=== PATIENT | male | born 1965 | race Caucasian/White ===

== ENCOUNTER 2017-02-17 16:29 | Emergency (ER) | payer MEDICAID ==
[2017-02-17] MEDS ORDERED: NS 1,000 ML IV ONE ×2 (16:59→17:08)
--- NOTE | 2017-02-17 17:01 | EDPHY ---
Addendum entered and electronically signed by Jamilah Morocho PAC 02/17/17 18:27: Decision was made to transfer to [facility] due to not having Dermatology here at this facility. 1825: Spoke with Dr. Alfonso Merchant at [facility] who kindly agrees to accept care of the patient. Patient will be admitted for further workup and management to the floor, inpatient status. Original Note: H & P Stated Complaint: red peeling skin for two weeks getting worse Source: Patient, Family Exam Limitations: No limitations - Personal History Current Tetanus/Diphtheria Vaccine: No Current Tetanus Diphtheria and Acellular Pertussis (TDAP): No - Medical/Surgical History Hx Asthma: No Hx Chronic Respiratory Disease: No Hx Diabetes: No Hx Cardiac Disease: No Hx Renal Disease: No Hx Cirrhosis: No Hx Alcoholism: No Hx HIV/AIDS: No Hx Splenectomy or Spleen Trauma: No Other PMH: psoriasis. right shoulder shoulder surgery - Social History Smoking Status: Never smoked Time Seen by Provider: 02/17/17 16:59 HPI/ROS: HPI: This is a 51-year-old male who presents with Chief Complaint: red peeling skin for two weeks getting worse Location: Skin Quality: Red and peeling Duration: 2 weeks Signs and Symptoms: No fever, + chills, no blood in stool, no nausea, no vomiting, no easy bruising, + petechiae, + rash Timing: Worsening Severity: Severe Context: Patient has a history of psoriasis, noted a reddened rash that started on his torso approximately 2 weeks ago that has spread to his entire body including the palms of his hands and soles of his feet accompanied by "red spots" in his mouth and easy bleeding from his gums when he brushes his teeth. + chills. For the last week he has been using Ceravue with no improvement in his symptoms. Patient denies pruritus. Complaining about flakiness of skin. Denies any new medication/lotion/detergents/perfumes. Denies meningismus/fever/ headache/blood in stool/hematemesis. He has tried Benadryl, Claritin without relief of symptoms. No recent upper respiratory symptoms. Modifying Factors: See above Comment: ROS: see HPI Constitutional: No fever, + chills, no weight loss Eyes: No blurred vision Respiratory: No shortness of breath, no cough Cardiovascular: No chest pain Gastrointestinal: No nausea, no vomiting, no diarrhea Genitourinary: No dysuria Extremities: No myalgias Neurologic: No weakness, no numbness Skin: No rashes Hematologic: No bruising, no bleeding MEDICAL/SURGICAL/SOCIAL HISTORY: Medical history: Psoriasis. Does not take any regular medications. Surgical history: Right shoulder surgery Social history: Employed. CONSTITUTIONAL: Overweight pleasant nontoxic appearing adult male, awake and alert, no obvious distress HEENT: Atraumatic and normocephalic, PERRL, EOMI. Small pinpoint some good deductible hemorrhages noted in left eye. Tympanic membranes clear. Oropharynx petechiae noted on hard palate; no exudate and moist pink mucosa. Airway patent. No lymphadenopathy. No meningismus. Cardiovascular: Normal S1/S2, regular rate, regular rhythm, without murmur rub or gallop. PULMONARY/CHEST: Symmetrical and nontender. Clear to auscultation bilaterally. Good air movement. No accessory muscle usage. ABDOMEN: Soft, nondistended, nontender, no rebound, no guarding, no peritoneal signs, no masses or organomegaly. No CVAT. EXTREMITIES: 2/2 pulses, strength 5/5, no deformities, no clubbing, no cyanosis or edema. NEUROLOGICAL: no focal neuro deficits. GCS 15. SKIN: Warm and dry, bright red/edematous skin confluent entire body; face, palms , soles with white sloughing and flakiness, no target lesions, no blisters, blanches with palpation, white skin flaking is removed when touched, +Nikolsky' s sign, no rash. Good capillary refill. (Jamilah Morocho) Constitutional: Initial Vital Signs Temperature (C) 36.8 C 02/17/17 16:32 Heart Rate 116 H 02/17/17 16:32 Respiratory Rate 20 02/17/17 16:32 Blood Pressure 139/85 H 02/17/17 16:32 O2 Sat (%) 92 02/17/17 16:32 O2 Delivery Mode Room Air Allergies/Adverse Reactions: No Known Allergies Allergy (Unverified 02/17/17 16:31) Home Medications: Medication Instructions Recorded NK [No Known Home Meds] 02/17/17 Medical Decision Making ED Course/Re-evaluation: Labs, 2 liters NS IV fluids ordered Vital signs show mild tachycardia upon arrival. Labs evaluate; no leukocytosis/coagulopathy/thrombocytopenia. CRP elevated. no signs of sepsis/airway compromise Due to systemic response that is progressing in nature with unclear etiology. ED decision to consult for admission, spoke with hospitalist, Dr. Benz, for desquamative dermatitis. This patient was seen under the supervision of my primary supervising physician. The patient was seen in conjunction with Dr. Bird, who saw and evaluated the patient. Patient's presentation, labs/imaging, treatment and plan of care were discussed with primary supervising physician. (Jamilah Morocho) 17:09 I assessed and examined this patient. 51 y/o male with history of psoriasis presents with a diffuse erythematous and exfoliative rash including the palms of his hands and soles of his feet. He denies pain but endorses increased sensitivity of his skin. He denies any other past medical history or prescription medication use. No alcohol or illicit drug use. He endorses marijuana use, but discontinued this after onset of symptoms. He denies recent travel or hotel stays, no new soap or detergents. He has seen three dermatologists in the past for psoriasis, but his current symptoms are different and more severe. I concur with Jamilah Morocho's exam and plan thus far. Concerning presentation for erythroderma vs more serious etiology. Given no blisters, doubt SJS, TEN. General Appearance: Alert, pleasant, non-toxic appearing Eyes: Pupils equal and round, no conjunctival pallor or injection ENT, Mouth: Petechiae in the posterior pharynx, Mucous membranes moist Neck: No swelling Respiratory: Lungs are clear to auscultation Cardiovascular: Regular rate and rhythm Gastrointestinal: Abdomen is soft and non-tender Neurological: A&O, nonfocal exam Skin: Diffuse erythema with sloughing of skin, No blisters or bulli Extremities: non-pitting edema of the extremities Psychiatric: Mood and affect normal (Sara Bird) Differential Diagnosis: Differential diagnosis includes but is not limited to erythema multiform, staphylococcal scalded skin syndrome, erythroderma, toxic shock syndrome, acute generalized exanthem is pustulosis, DRESS syndrome. (Jamilah Morocho) - Data Points Laboratory Results: Laboratory Results 02/17/17 17:05 02/17/17 17:05 02/17/17 02/17/17 02/17/17 17:05 17:05 17:05 WBC RBC Hgb Hct MCV MCH MCHC RDW Plt Count MPV Neut % (Auto) Lymph % (Auto) Candler % (Auto) Eos % (Auto) Baso % (Auto) Nucleat RBC Rel Count Absolute Neuts (auto) Absolute Lymphs (auto) Absolute Monos (auto) Absolute Eos (auto) Absolute Basos (auto) Absolute Nucleated RBC Immature Gran % Immature Gran # ESR PT 13.9 SEC SEC (12.0-15.0) INR 1.05 (0.83-1.16) APTT 28.3 SEC SEC (23.0-38.0) VBG Lactic Acid 1.7 mmol/L mmol/L (0.7-2.1) Sodium 143 mEq/L mEq/L (134-144) Potassium 4.7 mEq/L mEq/L (3.5-5.2) Chloride 104 mEq/L mEq/L (97-110) Carbon Dioxide 30 mEq/l mEq/l (22-31) Anion Gap 9 mEq/L mEq/L (8-16) BUN 10 mg/dL mg/dL (7-23) Creatinine 0.8 mg/dL mg/dL (0.7-1.3) Estimated GFR > 60 Glucose 104 mg/dL H mg/dL (70-100) Calcium 8.5 mg/dL mg/dL (8.5-10.4) Total Bilirubin 0.4 mg/dL mg/dL (0.1-1.4) AST 51 IU/L IU/L (17-59) ALT 72 IU/L IU/L (21-72) Alkaline Phosphatase 91 IU/L IU/L (38-126) C-Reactive Protein 56.0 mg/L H mg/L (<10.0) Total Protein 5.7 g/dL L g/dL (6.3-8.2) Albumin 3.0 g/dL L g/dL (3.5-5.0) 02/17/17 17:05 WBC 9.46 10^3/uL 10^3/uL (3.80-9.50) RBC 4.11 10^6/uL L 10^6/uL (4.40-6.38) Hgb 12.5 g/dL L g/dL (13.7-17.5) Hct 37.5 % L % (40.0-51.0) MCV 91.2 fL fL (81.5-99.8) MCH 30.4 pg pg (27.9-34.1) MCHC 33.3 g/dL g/dL (32.4-36.7) RDW 14.3 % % (11.5-15.2) Plt Count 205 10^3/uL 10^3/uL (150-400) MPV 9.1 fL fL (8.7-11.7) Neut % (Auto) 55.8 % % (39.3-74.2) Lymph % (Auto) 29.8 % % (15.0-45.0) Candler % (Auto) 6.7 % % (4.5-13.0) Eos % (Auto) 7.0 % % (0.6-7.6) Baso % (Auto) 0.3 % % (0.3-1.7) Nucleat RBC Rel Count 0.0 % % (0.0-0.2) Absolute Neuts (auto) 5.28 10^3/uL 10^3/uL (1.70-6.50) Absolute Lymphs (auto) 2.82 10^3/uL 10^3/uL (1.00-3.00) Absolute Monos (auto) 0.63 10^3/uL 10^3/uL (0.30-0.80) Absolute Eos (auto) 0.66 10^3/uL H 10^3/uL (0.03-0.40) Absolute Basos (auto) 0.03 10^3/uL 10^3/uL (0.02-0.10) Absolute Nucleated RBC 0.00 10^3/uL 10^3/uL (0-0.01) Immature Gran % 0.4 % % (0.0-1.1) Immature Gran # 0.04 10^3/uL 10^3/uL (0.00-0.10) ESR 10 MM/HR MM/HR (0-20) PT INR APTT VBG Lactic Acid Sodium Potassium Chloride Carbon Dioxide Anion Gap BUN Creatinine Estimated GFR Glucose Calcium Total Bilirubin AST ALT Alkaline Phosphatase C-Reactive Protein Total Protein Albumin Medications Given: Discontinued Medications Sodium Chloride (Ns) 1,000 mls @ 0 mls/hr IV EDNOW ONE; Wide Open PRN Reason: Protocol Stop: 02/17/17 17:00 Last Admin: 02/17/17 17:08 Dose: 1,000 mls Sodium Chloride (Ns) 1,000 mls @ 0 mls/hr IV EDNOW ONE; Wide Open PRN Reason: Protocol Stop: 02/17/17 17:09 Last Admin: 02/17/17 17:46 Dose: 1,000 mls Departure - Departure Disposition: [facility] Acute Clinical Impression: Desquamative dermatitis Condition: Fair
[2017-02-17 17:35] LABS: INR 1.05 (0.83-1.16); PROTIME(PATIENT) 13.9 SEC (12.0-15.0)
[2017-02-17 17:38] LABS: PLATELET COUNT 205 10^3/uL (150-400)
[2017-02-17 18:25] VITALS: TEMP 98.1
[2017-02-17 19:49] VITALS: O2SAT 95
[2017-02-17 20:30] VITALS: BP 146/89; PULSE 106; RESP 16
--- NOTE | 2017-02-17 21:47 | GCON ---
[f rep st] CONSULTATION HOSPITALIST CONSULTATION DATE OF CONSULTATION: 02/17/2017 REFERRING PHYSICIAN: Sara Bird MD REASON FOR CONSULTATION: Evaluation for admission due to rash. HISTORY OF PRESENT ILLNESS: This is a 51-year-old male with history of psoriasis who presented to [facility] with a total body rash. He has been off treatment for psoriasis for years. He tells me e very winter he develops some psoriasis symptoms. This time, his rash began on his torso about 2-3 we eks ago and has since progressed from his "nose to his toes." He came in today since he is having wo rsening swelling of his arms and legs. He has also had some chills today but denies any fever. His diet is diminished, but he is eating. He denies any nausea or vomiting. He denies any diarrhea. He denies any abdominal pain. He has not been on any new medications. He denies any new exposures to chemical irritants. PAST MEDICAL HISTORY: Psoriasis. PAST SURGICAL HISTORY: Mandible ORIF and shoulder surgery. HOME MEDICATIONS: Were reviewed. Refer to Lala for details. ALLERGIES: No known drug allergies. SOCIAL HISTORY: He denies any alcohol, tobacco, or illicit drug use. Lives in [place]. FAMILY HISTORY: Reviewed and noncontributory. REVIEW OF SYSTEMS: Comprehensive 10-point review of systems was done and was negative, except for as mentioned in the HPI. PHYSICAL EXAM: VITAL SIGNS: Blood pressure 149/93, pulse of 100, respiratory rate 18, O2 saturation 95% on room air. Temperature afebrile. GENERAL: No acute distress. HEAD: Normocephalic, atrauma tic. EYES: PERRLA. Sclerae anicteric. MOUTH: Moist mucous membranes. There are some petechiae o n the soft palate, but no desquamation. Sclerae are without injection. CARDIOVASCULAR: S1, S2 tach ycardic. No JVD. There is nonpitting lower extremity edema. PULMONARY: Lungs are clear. No wheez es, rales, or rhonchi. Normal respiratory effort. ABDOMEN: Soft, nontender, nondistended. No guar ding or rebound tenderness. Normoactive bowel sounds. EXTREMITIES: No clubbing or cyanosis. NEURO LOGIC: Cranial nerves 2-12 grossly intact. No focal motor or sensory deficits. SKIN: Patient has diffuse circumferential erythema from his face all the way to his legs with some desquamation. Negat lynn Nikolksy sign. There are no pustules noted. DIAGNOSTICS: WBC is 9.4, hemoglobin 12.5 hematocrit 37.5, platelets 205, eosinophils 7% with a sligh tly high eosinophil count of 0.66. ESR is 10. Sodium 143, potassium 4.7, chloride 104, CO2 of 30, B UN 10, creatinine 0.8, glucose 104. LFTs unremarkable. C-reactive protein mildly elevated at 56. T otal protein 5.7. Albumin is 3. ASSESSMENT: This is a 51-year-old male with history of psoriasis, presenting with total body rash. Differential diagnosis includes erythroderma versus generalized annular pustular psoriasis versus oth er, most likely Hunter-Lisandro syndrome. PLAN: I was asked to admit the patient to the hospital; however, I felt uncomfortable with this, sin ce we do not have Dermatology data center consultant. I hesitate treating the patient with steroids, given the risk for causing an outbreak of pustular psoriasis. The patient should ultimately have a skin biopsy and definitive diagnosis with further expert treatment. I discussed this with Dr. Bird in the emergency department, who will contact the [facility] to see if they are willing to accept care. I worry that if his condition continues to worsen and he develops diffuse desquamation, he may require specialty treatment at a burn unit. /[id number]/MODL
== END 2017-02-17 20:42 | disposition short-term general hospital (02) ==
LOC: UNDOADMOB 18:06
DX: L53.9 Erythematous condition, unspecified (principal)